=== PATIENT | female | born 1975 | race African-American/Black ===

== ENCOUNTER 2021-11-13 14:19 | Inpatient (IN) | payer MEDICARE, MEDICAID ==
[~2021-11-13] VITALS: Ht 177.8 cm; Wt 130.5 kg
[2021-11-13] VITALS (49 sets, daily range): BP systolic 72–209; BP diastolic 53–119
--- NOTE | ~2021-11-13 | EEG ---
[place] [address] EEG STUDY REPORT Name: SOPHIE STEPHENS Room: [address] IN .R.#: [id number] Admission: 11/13/21 Attend Phys: Margaret Martinez Discharge: Date of : 75 Report #: [id number] THIS REPORT FOR: cc: Beth Anne APRN, Stephanie APRN Khosla,Oj Doran MD ~ DATE OF SERVICE: 11/16/2021 This patient is being evaluated for hypoxic encephalopathy. This patient's background activity goes up to about 6 Hz and 30 microvolt, well defined cortical activity is present. There appeared to be frontally predominant triphasic waves. No active epileptiform activity appeared to be present. IMPRESSION: This patient's EEG is abnormal because it is slow and triphasic waves are present that can occur with encephalopathy. However, well defined cortical activity is present, although it is slow. Thank you very much for this referral. By: 1225 1240Oj Gooden MD /nt
--- NOTE | ~2021-11-13 | EEG ---
[address] [address] EEG STUDY REPORT Name: SOPHIE STEPHENS Room: [address] IN .R.#: [id number] Admission: 11/13/21 Attend Phys: Margaret Martinez Discharge: Date of : 75 Report #: [id number] THIS REPORT FOR: cc: Beth Anne APRN, Stephanie APRN Khosla,Oj Doran MD ~ DATE OF SERVICE: 11/14/2021 This patient's EEG was done to evaluate the patient for hypoxic encephalopathy. EEG was done by placing electrode by standard 10-20 system of electrode placement. Both referential and sequential montages were used for recording. The patient's EEG demonstrate classical burst suppression pattern. IMPRESSION: This patient's EEG is abnormal and demonstrates a classical burst suppression pattern throughout the EEG. Clinical correlation is recommended. We will recommend repeat EEG after the patient is off sedation and off hypothermia protocol to further evaluate this patient. Thank you very much for this referral and if you have any questions, please feel free to contact me. By: 1545 1631Pkarely Gooden MD /nt
--- NOTE | ~2021-11-13 | CON ---
[address] [address] CONSULTATION Name: SOPHIE STEPHENS Room: [address] IN M.R.#: [id number] Admission: 11/13/21 Attend Phys: Margaret Martinez Discharge: Date of : 75 Report #: [id number] THIS REPORT FOR: cc: Beth Anne APRN,Beth Gooden,Oj Doran MD ~ DATE OF CONSULTATION: 11/14/2021 HISTORY OF PRESENT ILLNESS: A 46-year-old female patient who was evaluated by me for hypoxic encephalopathy. This patient has numerous medical issues and she is being followed by multiple physicians. She was found unresponsive at home but then coded in ambulance as I understand from the nurses and required epinephrine and subsequently she was intubated and she was having some seizure-like activity, but then she was given paralytic agents. It is difficult to tell if she is having seizure activity now or not clinically. REVIEW OF SYSTEMS: Positive for dialysis. She is on dialysis for some time. Family has left, so I cannot reach them and so therefore, history is pretty limited in this patient. Record indicated that she has a history of obesity, hypertension, diabetes, being on dialysis and had a cardiac arrest. This was a relevant 14-point review of system, which is available. PAST MEDICAL HISTORY: Positive that she is on dialysis. FAMILY HISTORY: Positive for diabetes and hypertension as per records. SOCIAL HISTORY: One of the record indicated she does not smoke or drink alcohol. PHYSICAL EXAMINATION: Pretty limited. She is completely unresponsive, but she is also on sedation and paralytic agent. She is not having any active seizure, but that will be difficult to tell because she is on paralytic agents. She has no reflexes. She is blind in the right eye. Left pupil is nonreactive. Although, it is midpoint. This is all the examination which is possible in this patient. She is intubated. Temperature is 91.9. She is on hypothermia protocol. Pulse is 60 and blood pressure is 148/85. She did not have a CT scan in the Emergency Room. EEG showed classical burst suppression pattern. IMPRESSION AND PLAN: Hypoxic encephalopathy with EEG showing classical burst suppression pattern. Burst suppression pattern generally is considered a bad prognostic sign after hypoxic encephalopathy. However, that determination cannot be made presently because the patient is on hypothermia protocol as well as on sedation. The patient need another serial [place] [address] CONSULTATION Name: SOPHIE STEPHENS Room: [address] IN [facility]#: [id number] Admission: 11/13/21 Attend Phys: Margaret Martinez Discharge: Date of : 75 Report #: [id number] determine the extent of hypoxic damage to the brain. She was already having seizure activity and the patient with burst suppression pattern tend to have seizure. We will go ahead and give her 500 mg b.i.d. of Keppra and see if that can control the seizures and then attempt can be made to discontinue or at least taper off the paralyzing agent. That may not work because the patient's seizures with a burst suppression pattern can be intractable seizures and sometimes difficult. By: 1603 1851Pkarely Gooden MD /nt
[2021-11-13 15:13] LABS: HEMATOCRIT 34.6 % (37.0-47.0); HEMOGLOBIN 10.7 gm/dL (12.0-15.0); MCH 28.7 pg (26.0-34.0); MCV 92.5 fL (80.0-100.0); MPV 7.7 fl. (7.2-11.1); NUCLEATED RBCS 0 /100WBC; PLATELET COUNT* 324 thou/uL (150-400); RBC 3.74 mil/uL (4.20-5.00); WBC 14.9 thou/uL (4.0-11.0)
[2021-11-13 15:24] LABS: CALCIUM 8.5 mg/dL (8.5-10.1); CREATININE 9.2 mg/dL (0.6-1.3); POTASSIUM 4.3 mmol/L (3.5-5.1)
[2021-11-13 15:34] LABS: ALBUMIN 3.1 g/dL (3.4-5.0); TOTAL BILIRUBIN 0.6 mg/dL (<0.1-1.0); TOTAL PROTEIN 7.5 g/dL (6.4-8.2)
[2021-11-13 15:52] LABS: ABSOLUTE LYMPHOCYTES 5.8 thou/uL (0.8-5.3); ABSOLUTE MONOCYTES 0.3 thou/uL (0.0-1.2); ABSOLUTE NEUTROPHILS 8.8 thou/uL (1.6-8.1); PLATELET ESTIMATE ADEQUATE
[2021-11-13 21:30] LABS: ABSOLUTE LYMPHOCYTES 0.8 thou/uL (0.8-5.3); ABSOLUTE MONOCYTES 0.6 thou/uL (0.0-1.2); ABSOLUTE NEUTROPHILS 16.2 thou/uL (1.6-8.1); BASOPHILS 0.1 %; EOSINOPHILS 0.1 %; HEMOGLOBIN 9.6 gm/dL (12.0-15.0); LYMPHOCYTES 4.3 %; MCH 28.4 pg (26.0-34.0); MCV 88.8 fL (80.0-100.0); MONOCYTES 3.5 %; MPV 7.7 fl. (7.2-11.1); NUCLEATED RBCS 0 /100WBC; PLATELET COUNT* 268 thou/uL (150-400); RBC 3.38 mil/uL (4.20-5.00); RDW-CV 18.7 % (10.5-14.5); WBC 17.6 thou/uL (4.0-11.0)
[2021-11-13 21:34] LABS: CALCIUM 7.5 mg/dL (8.5-10.1); CREATININE 9.7 mg/dL (0.6-1.3); POTASSIUM 4.6 mmol/L (3.5-5.1)
[2021-11-13 21:40] LABS: BE -4.4 mmol/L (-2 to +3); PCO2 29.2 mmHg (35.0-45.0); pH 7.431 (7.340-7.450)
[2021-11-13 21:43] LABS: PO2 243.2 mmHg (75.0-100.0)
[2021-11-13 21:54] LABS: APTT 30.7 Seconds (25.0-31.3); INR 1.3
[2021-11-13 21:56] LABS: CALCIUM 7.6 mg/dL (8.5-10.1)
[2021-11-13 22:08] LABS: MAGNESIUM 1.7 mg/dL (1.8-2.4); PHOSPHORUS* 6.7 mg/dL (2.5-4.9)
[2021-11-14] VITALS (115 sets, daily range): BP systolic 82–168; BP diastolic 50–119
[2021-11-14 01:01] LABS: CALCIUM 7.6 mg/dL (8.5-10.1); CREATININE 9.6 mg/dL (0.6-1.3); POTASSIUM 4.4 mmol/L (3.5-5.1)
[2021-11-14 05:28] LABS: ABSOLUTE LYMPHOCYTES 0.9 thou/uL (0.8-5.3); ABSOLUTE MONOCYTES 0.6 thou/uL (0.0-1.2); ABSOLUTE NEUTROPHILS 15.9 thou/uL (1.6-8.1); BASOPHILS 0.1 %; HEMATOCRIT 33.1 % (37.0-47.0); HEMOGLOBIN 10.6 gm/dL (12.0-15.0); LYMPHOCYTES 4.9 %; MCH 28.3 pg (26.0-34.0); MCV 88.4 fL (80.0-100.0); MONOCYTES 3.4 %; NUCLEATED RBCS 0 /100WBC; PLATELET COUNT* 262 thou/uL (150-400); POLYS 91.6 %; RBC 3.74 mil/uL (4.20-5.00); RDW-CV 18.9 % (10.5-14.5); WBC 17.4 thou/uL (4.0-11.0)
[2021-11-14 05:39] LABS: ANION GAP 16 mmol/L (7-16); BUN 39 mg/dL (7-18); CALCIUM 7.8 mg/dL (8.5-10.1); CHLORIDE 96 mmol/L (98-107); CO2 22 mmol/L (21-32); CREATININE 9.7 mg/dL (0.6-1.3); GLUCOSE 196 mg/dL (70-99); NT-PRO BRAIN NAT PEPTIDE > 35000 pg/mL (<300); POTASSIUM 4.9 mmol/L (3.5-5.1); SODIUM 134 mmol/L (136-145)
[2021-11-14 10:21] LABS: PCO2 26.7 mmHg (35.0-45.0); PO2 111.9 mmHg (75.0-100.0); pH 7.496 (7.340-7.450)
[2021-11-14 13:46] LABS: INFLUENZA A ANTIGEN Negative (Negative); INFLUENZA B ANTIGEN Negative (Negative)
--- NOTE | 2021-11-14 14:43 | EKG ---
[place] [address] ELECTROCARDIOGRAM REPORT Name: SOPHIE STEPHENS Room: [address] ADM IN ..#: [id number] Admission: 11/13/21 Attend Phys: Ivan Jacobson Discharge: Date of : 75 Date of Service: 11/13/21 1547 Report #: [id number] THIS REPORT FOR: //name// [facility] ED Test Date: 2021-11-13 Test Time: 15:47:09 Pat Name: SOPHIE STEPHENS Department: Room: [facility] Gender: F [employer] Work[employer] Supervisor: GENEVIEVE : 1975 Requested By: Julian Chew Order Number: [id number] MD: Mikhail Bush Measurements Intervals Union Rate: 95 P: 71 NM: 159 QRS: 33 QRSD: 91 T: 49 QT: 379 QTc: 477 Interpretive Statements Sinus rhythm No previous ECG available for comparison Electronically Signed On 11-14-2021 14:43:25 CUT ORDER HAND by Mikhail Bush [email or web address] <ELECTRONICALLY SIGNED> By: Mikhail Bush MD, [facility] 11/14/21 1443 1547 1547 Mikhail Bush MD, [facility] /EPI
--- NOTE | 2021-11-14 16:16 | 2DMMODE ---
[place] [address] 2 D/M-MODE ECHOCARDIOGRAM Name: SOPHIE STEPHENS Cecily Room: [address] ADM IN R#: [id number] Admission: 11/13/21 Attend Phys: Ivan Jacobson Discharge: Date of : 75 Date of Service: 11/14/21 1615 Report #: [id number] THIS REPORT FOR: cc: Beth Anne APRN,Beth Bush,Mikhail Riggs MD [facility] ~ APPROVED REPORT Study performed: 11/14/2021 14:58:50 EXAM: Comprehensive 2D, Doppler, and color-flow Echocardiogram Patient Location: In-Patient Room #: 004 Status: routine BSA: 2.43 HR: 68 bpm BP: 148/85 mmHg Rhythm: NSR Other Information Study Quality: Adequate Indications cardiac arrest 2D Dimensions IVSd: 18.00 (7-11mm) LVOT Diam: 19.33 (18-24mm) LVDd: 31.60 mm PWd: 12.73 (7-11mm) Ascending Ao: 31.75 (22-36mm) LVDs: 16.76 (25-40mm) Aortic Root: 30.79 mm Volumes Left Atrial Volume (Systole) LA ESV Index: 17.30 mL/m2 Aortic Valve AoV Peak Roberto.: 1.12 m/s AO Peak Gr.: 4.98 mmHg LVOT Max P.50 mmHg AO Mean Gr.: 2.62 mmHg LVOT Mean P.75 mmHg LVOT Max V: 0.94 m/s AO V2 VTI: 26.06 cm LVOT Mean V: 0.61 m/s BRINA (VTI): 3.38 cm2 LVOT V1 VTI: 30.00 [place] [address] 2 D/M-MODE ECHOCARDIOGRAM Name: SOPHIE STEPHENS Room: [address] IN ..#: [id number] Admission: 11/13/21 Attend Phys: Ivan Jacobson Discharge: Date of : 75 Date of Service: 11/14/21 1615 Report #: [id number] Mitral Valve E/A Ratio: 1.03 MV Decel. Time: 215.48 ms MV E Max Roberto.: 0.91 m/s MV PHT: 62.49 ms MVA (PHT): 3.52 cm2 TDI E/Lateral E': 13.00 E/Medial E': 11.38 Medial E' Roberto.: 0.08 m/s Lateral E' Roberto.: 0.07 m/s Pulmonary Valve PV Peak Roberto.: 0.82 m/s PV Peak Gr.: 2.68 mmHg Left Ventricle The left ventricle is normal size. There is normal LV segmental wall motion. Mild concentric left ventricular hypertrophy. Left ventricular systolic function is normal. The left ventricular ejection fraction is within the normal range. LVEF is 65-70%. The left ventricular diastolic function is normal. Right Ventricle The right ventricle is normal size. The right ventricular systolic function is normal. Atria The left atrium size is normal. The right atrium size is normal. Aortic Valve The aortic valve is normal in structure. No aortic regurgitation is present. There is no aortic valvular stenosis. Mitral Valve The mitral valve is normal in structure. Trace mitral regurgitation. No evidence of mitral valve stenosis. Tricuspid Valve The tricuspid valve is normal in structure. Unable to assess PA pressure. Trace tricuspid regurgitation. Pulmonic Valve The pulmonary valve is normal in structure. [place] [address] 2 D/M-MODE ECHOCARDIOGRAM Name: SOPHIE STEPHENS Room: [address] IN [facility]#: [id number] Admission: 11/13/21 Attend Phys: Ivan Jacobson Discharge: Date of : 75 Date of Service: 11/14/21 1615 Report #: [id number] Great Vessels The aortic root is normal in size. IVC is not well visualized. Pericardium There is no pericardial effusion. <Conclusion> Mild concentric left ventricular hypertrophy. LVEF is 65-70%. Trace mitral regurgitation. <ELECTRONICALLY SIGNED> By: Mikhail Bush MD, FACC 11/14/211614 14 14 Mikhail Bush MD, FACC /INF
[2021-11-14 18:05] LABS: APTT 34.9 Seconds (25.0-31.3); INR 1.4; PROTIME 14.6 Seconds (9.20-11.50)
[2021-11-14 18:06] LABS: ALBUMIN 2.3 g/dL (3.4-5.0); ALKALINE PHOSPHATASE 62 U/L (46-116); ANION GAP 15 mmol/L (7-16); BUN 40 mg/dL (7-18); CHLORIDE 98 mmol/L (98-107); CO2 23 mmol/L (21-32); CREATININE 9.5 mg/dL (0.6-1.3); GLUCOSE 201 mg/dL (70-99); MAGNESIUM 1.8 mg/dL (1.8-2.4); NT-PRO BRAIN NAT PEPTIDE > 35000 pg/mL (<300); PHOSPHORUS* 5.9 mg/dL (2.5-4.9); POTASSIUM 4.6 mmol/L (3.5-5.1); SGOT 109 U/L (15-37); SGPT 276 U/L (30-65); SODIUM 136 mmol/L (136-145); TOTAL BILIRUBIN 0.6 mg/dL (<0.1-1.0); TOTAL PROTEIN 6.3 g/dL (6.4-8.2)
[2021-11-14 19:02] LABS: ABSOLUTE LYMPHOCYTES 0.5 thou/uL (0.8-5.3); ABSOLUTE MONOCYTES 0.1 thou/uL (0.0-1.2); ABSOLUTE NEUTROPHILS 14.9 thou/uL (1.6-8.1); BASOPHILS 0.1 %; EOSINOPHILS 0.1 %; HEMATOCRIT 31.9 % (37.0-47.0); HEMOGLOBIN 10.4 gm/dL (12.0-15.0); LYMPHOCYTES 3.4 %; MCH 28.4 pg (26.0-34.0); MCHC 32.7 g/dL (28.0-37.0); MCV 86.8 fL (80.0-100.0); MONOCYTES 0.9 %; MPV 7.5 fl. (7.2-11.1); NUCLEATED RBCS 0 /100WBC; PLATELET COUNT* 221 thou/uL (150-400); POLYS 95.5 %; RBC 3.67 mil/uL (4.20-5.00); RDW-CV 18.6 % (10.5-14.5); WBC 15.7 thou/uL (4.0-11.0)
[2021-11-15] VITALS (67 sets, daily range): BP systolic 77–160; BP diastolic 42–101
[2021-11-15 03:46] LABS: ABSOLUTE LYMPHOCYTES 0.6 thou/uL (0.8-5.3); ABSOLUTE MONOCYTES 0.1 thou/uL (0.0-1.2); ABSOLUTE NEUTROPHILS 15.5 thou/uL (1.6-8.1); BASOPHILS 0.3 %; HEMATOCRIT 32.6 % (37.0-47.0); HEMOGLOBIN 10.4 gm/dL (12.0-15.0); LYMPHOCYTES 3.6 %; MCH 27.9 pg (26.0-34.0); MCHC 31.8 g/dL (28.0-37.0); MCV 87.7 fL (80.0-100.0); MONOCYTES 0.7 %; MPV 7.8 fl. (7.2-11.1); NUCLEATED RBCS 0 /100WBC; PLATELET COUNT* 227 thou/uL (150-400); POLYS 95.4 %; RBC 3.72 mil/uL (4.20-5.00); RDW-CV 18.4 % (10.5-14.5); WBC 16.2 thou/uL (4.0-11.0)
[2021-11-15 03:57] LABS: PHOSPHORUS* 6.3 mg/dL (2.5-4.9)
[2021-11-15 04:02] LABS: APTT 36.5 Seconds (25.0-31.3); INR 1.4; PROTIME 13.9 Seconds (9.20-11.50)
[2021-11-15 04:09] LABS: ALBUMIN 2.4 g/dL (3.4-5.0); CALCIUM 7.2 mg/dL (8.5-10.1); POTASSIUM 4.5 mmol/L (3.5-5.1); TOTAL BILIRUBIN 0.6 mg/dL (<0.1-1.0); TOTAL PROTEIN 6.5 g/dL (6.4-8.2)
[2021-11-15 08:20] LABS: BE -4.6 mmol/L (-2 to +3); PCO2 21.4 mmHg (35.0-45.0); pH 7.515 (7.340-7.450)
[2021-11-15 08:22] LABS: PO2 167.8 mmHg (75.0-100.0)
[2021-11-16] VITALS (39 sets, daily range): BP systolic 124–189; BP diastolic 64–116
[2021-11-16 04:01] LABS: ABSOLUTE LYMPHOCYTES 0.8 thou/uL (0.8-5.3); ABSOLUTE MONOCYTES 0.4 thou/uL (0.0-1.2); ABSOLUTE NEUTROPHILS 14.6 thou/uL (1.6-8.1); HEMATOCRIT 31.8 % (37.0-47.0); HEMOGLOBIN 10.2 gm/dL (12.0-15.0); LYMPHOCYTES 5.3 %; MCH 28.4 pg (26.0-34.0); MCHC 32.2 g/dL (28.0-37.0); MCV 88.1 fL (80.0-100.0); MONOCYTES 2.7 %; NUCLEATED RBCS 0 /100WBC; PLATELET COUNT* 219 thou/uL (150-400); RBC 3.61 mil/uL (4.20-5.00); RDW-CV 19.1 % (10.5-14.5); WBC 15.9 thou/uL (4.0-11.0)
[2021-11-16 04:22] LABS: ALBUMIN 2.5 g/dL (3.4-5.0); CALCIUM 7.7 mg/dL (8.5-10.1); MAGNESIUM 2.1 mg/dL (1.8-2.4); POTASSIUM 4.9 mmol/L (3.5-5.1); TOTAL BILIRUBIN 0.5 mg/dL (<0.1-1.0)
[2021-11-16 04:35] LABS: CREATININE 6.6 mg/dL (0.6-1.3)
[2021-11-16 08:02] LABS: BE -1.2 mmol/L (-2 to +3); PCO2 36.2 mmHg (35.0-45.0); PO2 116.5 mmHg (75.0-100.0)
--- NOTE | 2021-11-16 09:47 | CON ---
[address] [address] CONSULTATION Name: SOPHIE STEPHENS Room: [address] IN M.R.#: [id number] Admission: 11/13/21 Attend Phys: Margaret Martinez Discharge: Date of : 75 Report #: [id number] THIS REPORT FOR: cc: Beth Anne APRN,Beth Gonzalez,Aidan Moreno MD ~ DATE OF CONSULTATION: 11/14/2021 REQUESTING PHYSICIAN: Ivan Jacobson DO REASON FOR CONSULTATION: End-stage renal disease. HISTORY OF PRESENT ILLNESS: The patient is a 46-year-old female with medical history significant for end-stage renal disease, dialysis on Saturday, Saturday, Saturday schedule; obesity, history of hypertension, and diabetes. She had dialysis yesterday and went home and then was found unresponsive, was in cardiac arrest. She was resuscitated and now she is in intensive care unit, intubated. PAST MEDICAL HISTORY: As mentioned earlier. SOCIAL HISTORY: No tobacco or alcohol abuse. FAMILY HISTORY: Positive for diabetes and hypertension. MEDICATIONS: Reviewed. PHYSICAL EXAMINATION: GENERAL: She is in intensive care unit, intubated, unresponsive. NECK: Fatty. LUNGS: Decreased air movements. CARDIOVASCULAR: Regular rate. ABDOMEN: Obese. EXTREMITIES: Lower extremities, trace edema. She has left upper arm AV fistula. LABORATORY DATA: Revealed a potassium of 4.9. ABG today revealed pH of 7.49, pCO2 26.7, pO2 of 111.9. ASSESSMENT: 1. End-stage renal disease on Saturday, Saturday, Saturday dialysis. 2. Status post cardiac arrest. 3. Obesity. 4. [place] [address] CONSULTATION Name: KATSOPHIE Room: [address] IN .R.#: [id number] Admission: 11/13/21 Attend Phys: Margaret Martinez Discharge: Date of : 75 Report #: [id number] PLAN: Plan to dialyze her tomorrow. We will assess the extent of her anoxic encephalopathy. <ELECTRONICALLY SIGNED> By: Aidan Gonzalez MD 11/16/21 0947 0939 0947Aidan Gonzalez MD /nt
--- NOTE | 2021-11-16 16:51 | CON ---
[address] [address] CONSULTATION Name: SOPHIE STEPHENS Room: [address] IN M.R.#: [id number] Admission: 11/13/21 Attend Phys: Margaret Martinez Discharge: Date of : 75 Report #: [id number] THIS REPORT FOR: cc: Beth Anne APRN, Stephanie APRN Pervez, Adeel MD ~ DATE OF CONSULTATION: 11/14/2021 Consult has been requested by Dr. Jacobson. INDICATION FOR CONSULTATION: Acute hypoxemic respiratory failure. HISTORY OF PRESENT ILLNESS: A 46-year-old female, past medical history includes history of end-stage renal disease as well as diabetes, unknown as to whether she is vaccinated for COVID. The patient had hemodialysis yesterday, subsequently was found unresponsive, was brought to the Emergency Room and went into a PEA cardiac arrest in the Emergency Room, received CPR, received epinephrine, eventually had return of spontaneous circulation, was on an epinephrine drip. At this time, the patient is on the ventilator. She is on 35% FiO2 with 5 of PEEP. She is ventilating and oxygenating adequately. She is sedated and paralyzed on Versed and fentanyl drip as well as vecuronium. She is reported to have had jerky movements suspicious of seizures initially. She was also reported to be shivering initially. As she is paralyzed with vecuronium now, I am not able to evaluate this adequately at this time. She is now off pressors and she is hemodynamically stable. Her chest x-ray shows extensive bilateral infiltrates consistent with pulmonary edema, extensive pneumonia can also give this picture. PAST MEDICAL HISTORY: Diabetes and end-stage renal disease. SOCIAL HISTORY: Unknown. FAMILY HISTORY: Positive for diabetes and hypertension. CURRENT MEDICATIONS: List in [facility] reviewed. HOME MEDICATIONS: Unknown. ALLERGIES: No known drug allergies. PHYSICAL EXAMINATION: GENERAL: She is sedated and paralyzed as described above. VITAL SIGNS: [place] [address] CONSULTATION Name: KATSOPHIE Room: [address] IN [facility]#: [id number] Admission: 11/13/21 Attend Phys: Margaret Martinez Discharge: Date of : 75 Report #: [id number] HEENT: Head is normocephalic and atraumatic. There is an endotracheal tube in good position. NECK: Does not show raised JVP, asymmetry, mass or lymph nodes. CHEST: Symmetrical expansion on inspection and palpation. On auscultation, there are significant rales bilaterally. There are some end-expiratory wheezes heard as well. HEART: Regular. There is no murmur. ABDOMEN: Soft and nontender. EXTREMITIES: Lower extremities, trace edema, no calf tenderness. SKIN: Dry and intact. NEUROLOGIC: Completely unresponsive as sedated and paralyzed. LABORATORY DATA: In [facility] reviewed. IMAGING STUDIES: In [facility] reviewed. ASSESSMENT AND PLAN: 1. Acute hypoxemic respiratory failure secondary to cardiac arrest, the etiology of the patient's cardiac arrest is not fully defined at this time. Apparently, she had a cardiac arrest post-dialysis, which makes it less likely that this is secondary to pulmonary edema despite the fact that chest x-ray gives such an appearance. For now, she is on code ice. As it is not fully apparent to me as to whether the patient is refusing. She is paralyzed, I increased Versed. We will continue with fentanyl. Once she is off vecuronium, when we start to warm her, we would reassess. 2. Acute pulmonary edema/elevated troponin. I would obtain an echocardiogram, down the line may benefit from a Cardiology opinion as well. We would defer decision regarding dialysis to the Nephrology service. At this time, we are ventilating and oxygenating adequately. 3. Pulmonary infiltrates. More cultures and serologies including COVID-19 PCR are ordered. Pending results, I will give her dexamethasone. I would also broaden antibiotics. 4. Elevated D-dimer/evaluation for thromboembolism. It will be interesting to see what her right heart pressure is. I would also like to do venous Dopplers. 5. End-stage renal disease. She is on hemodialysis. 6. Diabetes. She is on an insulin sliding scale. 7. Gastrointestinal prophylaxis, Protonix. 8. Possible seizures/shivering before vecuronium started. It is not clear to me as to whether if the patient actually had seizures or as to whether she is still seizing. Therefore, I consulted Neurology and we will request them to do an EEG to evaluate whether she is having active seizures. Pending such evaluation, I increased Versed. [address] [address] CONSULTATION Name: SOPHIE STEPHENS Room: [address] IN M.R.#: [id number] Admission: 11/13/21 Attend Phys: Margaret Martinez Discharge: Date of : 75 Report #: [id number] The patient is critically ill at this time. Total time spent providing critical care to this patient today exceeds 41 minutes. <ELECTRONICALLY SIGNED> By: Nasir Stevenson MD 11/16/21 1651 1143 1419Adonna Stevenson MD /nt
[2021-11-17] VITALS (45 sets, daily range): BP systolic 95–173; BP diastolic 47–81
[2021-11-17 04:32] LABS: HEMOGLOBIN 9.4 gm/dL (12.0-15.0)
[2021-11-17 04:34] LABS: HEMATOCRIT 29.4 % (37.0-47.0); MCH 28.5 pg (26.0-34.0); MCHC 31.9 g/dL (28.0-37.0); MCV 89.4 fL (80.0-100.0); MPV 8.6 fl. (7.2-11.1); NUCLEATED RBCS 0 /100WBC; PLATELET COUNT* 222 thou/uL (150-400); RBC 3.29 mil/uL (4.20-5.00); RDW-CV 19.5 % (10.5-14.5); WBC 16.5 thou/uL (4.0-11.0)
[2021-11-17 05:20] LABS: CALCIUM 7.1 mg/dL (8.5-10.1); MAGNESIUM 2.2 mg/dL (1.8-2.4); POTASSIUM 4.1 mmol/L (3.5-5.1)
[2021-11-17 05:45] LABS: CREATININE 8.3 mg/dL (0.6-1.3)
[2021-11-17 07:27] LABS: ABSOLUTE LYMPHOCYTES 2.3 thou/uL (0.8-5.3); ABSOLUTE MONOCYTES 0.7 thou/uL (0.0-1.2); ABSOLUTE NEUTROPHILS 13.5 thou/uL (1.6-8.1); METAMYELOCYTES 1 %
[2021-11-17 07:28] LABS: ANISOCYTOSIS 1+; HYPOCHROMASIA 2+; MACROCYTES Occasional; MICROCYTES Occasional; PLATELET ESTIMATE ADEQUATE
--- NOTE | 2021-11-17 08:20 | CON ---
[address] [address] CONSULTATION Name: SOPHIE STEPHENS Room: [address] IN M.R.#: [id number] Admission: 11/13/21 Attend Phys: Margaret Martinez Discharge: Date of : 75 Report #: [id number] THIS REPORT FOR: cc: Beth Anne APRN,Beth Bush,Mikhail Riggs MD [facility] ~ DATE OF CONSULTATION: 11/15/2021 CARDIOLOGY CONSULTATION HISTORY OF PRESENT ILLNESS: The patient is a 46-year-old black female who was asked to see in the hospital today after she apparently had a respiratory arrest. The history is obtained from the chart. There are no family members available. The patient has never been here to [place] before. She was actually admitted 2 days ago. She was brought to [place] by ambulance in the afternoon. The patient apparently was undergoing dialysis and became unresponsive. She was brought here to [place] and intubated. Cardiology consultation was requested. According to the patient's chart, she has end-stage renal disease and undergoes hemodialysis Saturday, Saturday and Saturday. PAST MEDICAL HISTORY: Significant for hypertension, diabetes. MEDICATIONS: Prior to admission included the following list at dialysis. There is currently no list of medications in. PHYSICAL EXAMINATION: GENERAL: Reveals an obese black female lying in bed. She is on a ventilator. She is unresponsive to voice. VITAL SIGNS: She had a blood pressure 120/80, pulse 70. She is afebrile. HEENT: She was anicteric. Conjunctivae pink. Mucous membranes moist. NECK: Neck veins difficult to assess due to obesity. CHEST: Clear to auscultation. Normal lung sounds. CARDIAC: Regular rate and rhythm, no significant murmur. ABDOMEN: Obese. EXTREMITIES: Had trace edema. SKIN: Cool and dry. NEUROLOGIC: She is unresponsive to painful stimuli. LABORATORY DATA: Her ECG on admission showed a sinus rhythm, no ST or T-wave changes. She actually had an echocardiogram after she was admitted that showed ejection fraction of 65%, left ventricular hypertrophy. The patient had a portable chest x-ray on admission that showed cardiomegaly, bilateral infiltrates. Her lab work, creatinine was 10.0, potassium 4.5. Her glucose was 175. High sensitivity troponin was 289. BNP 35,000. Hematocrit 32.6. COVID antigen [place] [address] CONSULTATION Name: SOPHIE STEPHENS Room: [address]#: [id number] Admission: 11/13/21 Attend Phys: Margaret Martinez Discharge: Date of : 75 Report #: [id number] IMPRESSION AND RECOMMENDATIONS: 1. Respiratory distress, failure. The patient currently ventilated. 2. Coma following cardiac arrest. 3. Suspect pulseless electrical activity. The patient apparently was not cardioverted. 4. End-stage renal disease. The patient on hemodialysis. 5. Diabetes. 6. Hypertension. <ELECTRONICALLY SIGNED> By: Mikhail Bush MD, FACC 11/17/21 0820 1415 1902Drod Bush MD, FAC /nt
[2021-11-17 14:08] LABS: MYCOPLASMA PNEUMONIA IgG 560 U/mL (0-99); MYCOPLASMA PNEUMONIA IgM <770 U/mL (0-769)
[2021-11-18] VITALS (44 sets, daily range): BP systolic 106–223; BP diastolic 52–131
[2021-11-18 04:05] LABS: ALBUMIN 2.7 g/dL (3.4-5.0); CALCIUM 8.1 mg/dL (8.5-10.1); MAGNESIUM 1.9 mg/dL (1.8-2.4); POTASSIUM 3.9 mmol/L (3.5-5.1); TOTAL BILIRUBIN 0.4 mg/dL (<0.1-1.0); TOTAL PROTEIN 7.1 g/dL (6.4-8.2)
[2021-11-18 04:10] LABS: CREATININE 5.5 mg/dL (0.6-1.3)
[2021-11-18 07:25] LABS: ABSOLUTE BASOPHILS 0.1 thou/uL (0.0-0.2); ABSOLUTE LYMPHOCYTES 2.2 thou/uL (0.8-5.3); ABSOLUTE MONOCYTES 1.4 thou/uL (0.0-1.2); ABSOLUTE NEUTROPHILS 19.1 thou/uL (1.6-8.1); BASOPHILS 0.5 %; HEMATOCRIT 30.6 % (37.0-47.0); HEMOGLOBIN 9.7 gm/dL (12.0-15.0); LYMPHOCYTES 9.7 %; MCH 28.1 pg (26.0-34.0); MCHC 31.6 g/dL (28.0-37.0); MPV 8.9 fl. (7.2-11.1); NUCLEATED RBCS 0 /100WBC; PLATELET COUNT* 241 thou/uL (150-400); POLYS 83.8 %; RBC 3.44 mil/uL (4.20-5.00); RDW-CV 18.7 % (10.5-14.5); WBC 22.8 thou/uL (4.0-11.0)
[2021-11-18 12:54] LABS: BE 1.5 mmol/L (-2 to +3); PCO2 37.7 mmHg (35.0-45.0); pH 7.447 (7.340-7.450)
[2021-11-19] VITALS (36 sets, daily range): BP systolic 85–166; BP diastolic 36–92
[2021-11-19 04:47] LABS: ABSOLUTE BASOPHILS 0.1 thou/uL (0.0-0.2); ABSOLUTE LYMPHOCYTES 3.5 thou/uL (0.8-5.3); ABSOLUTE MONOCYTES 1.5 thou/uL (0.0-1.2); ABSOLUTE NEUTROPHILS 14.7 thou/uL (1.6-8.1); BASOPHILS 0.3 %; EOSINOPHILS 0.1 %; HEMATOCRIT 26.4 % (37.0-47.0); HEMOGLOBIN 8.5 gm/dL (12.0-15.0); LYMPHOCYTES 17.7 %; MCH 28.7 pg (26.0-34.0); MCHC 32.1 g/dL (28.0-37.0); MCV 89.4 fL (80.0-100.0); MONOCYTES 7.4 %; MPV 8.2 fl. (7.2-11.1); NUCLEATED RBCS 0 /100WBC; PLATELET COUNT* 217 thou/uL (150-400); POLYS 74.5 %; RBC 2.95 mil/uL (4.20-5.00); RDW-CV 18.6 % (10.5-14.5); WBC 19.7 thou/uL (4.0-11.0)
[2021-11-19 05:04] LABS: PHOSPHORUS* 5.5 mg/dL (2.5-4.9)
[2021-11-19 05:05] LABS: CALCIUM 8.1 mg/dL (8.5-10.1); POTASSIUM 3.7 mmol/L (3.5-5.1)
[2021-11-19 05:09] LABS: ALBUMIN 2.5 g/dL (3.4-5.0); MAGNESIUM 2.3 mg/dL (1.8-2.4); POTASSIUM 3.7 mmol/L (3.5-5.1); TOTAL BILIRUBIN 0.4 mg/dL (<0.1-1.0); TOTAL PROTEIN 6.3 g/dL (6.4-8.2)
[2021-11-19 05:14] LABS: CREATININE 7.1 mg/dL (0.6-1.3)
[2021-11-20] VITALS (62 sets, daily range): BP systolic 95–182; BP diastolic 38–94
[2021-11-20 05:51] LABS: CALCIUM 8.2 mg/dL (8.5-10.1); HEMATOCRIT 26.5 % (37.0-47.0); HEMOGLOBIN 8.4 gm/dL (12.0-15.0); MCH 28.5 pg (26.0-34.0); MCHC 31.8 g/dL (28.0-37.0); MCV 89.5 fL (80.0-100.0); MPV 8.3 fl. (7.2-11.1); NUCLEATED RBCS 0 /100WBC; PLATELET COUNT* 215 thou/uL (150-400); RBC 2.96 mil/uL (4.20-5.00); RDW-CV 19.1 % (10.5-14.5); WBC 19.4 thou/uL (4.0-11.0)
[2021-11-20 05:59] LABS: CREATININE 8.7 mg/dL (0.6-1.3)
[2021-11-20 07:04] LABS: ABSOLUTE EOSINOPHILS 0.4 thou/uL (0.0-0.7); ABSOLUTE LYMPHOCYTES 6.4 thou/uL (0.8-5.3); ABSOLUTE MONOCYTES 1.6 thou/uL (0.0-1.2); ABSOLUTE NEUTROPHILS 11.1 thou/uL (1.6-8.1)
[2021-11-20 07:07] LABS: PLATELET ESTIMATE ADEQUATE
[2021-11-20 07:08] LABS: ANISOCYTOSIS 1+
[2021-11-20 07:09] LABS: POLYCHROMASIA 1+
== END 2021-11-21 | DRG 4 ==
LOC: EDBD 14:19 → M.ERS 14:19 → M.TBA-ER 15:05 → M.ICU 15:05
PROVIDERS: Family Medicine; Internal Medicine; Internal Medicine Critical Care Medicine; Internal Medicine Nephrology; ADMIT Internal Medicine; ATTEND Internal Medicine
PROC: 0BH17EZ Insertion of Endotracheal Airway into Trachea, Via Natural or Artificial Opening (ICD-10-PCS; principal; 2021-11-13)
PROC: 06H033Z Insertion of Infusion Device into Inferior Vena Cava, Percutaneous Approach (ICD-10-PCS; principal; 2021-11-13)
PROC: 0DH68UZ Insertion of Feeding Device into Stomach, Via Natural or Artificial Opening Endoscopic (ICD-10-PCS; principal; 2021-11-13)
PROC: 5A1955Z Respiratory Ventilation, Greater than 96 Consecutive Hours (ICD-10-PCS; principal; 2021-11-13)
PROC: 5A12012 Performance of Cardiac Output, Single, Manual (ICD-10-PCS; principal; 2021-11-13)
PROC: B549ZZA Ultrasonography of Inferior Vena Cava, Guidance (ICD-10-PCS; principal; 2021-11-13)
PROC: 0B110F4 Bypass Trachea to Cutaneous with Tracheostomy Device, Open Approach (ICD-10-PCS; principal; 2021-11-13)
PROC: 5A12012 Performance of Cardiac Output, Single, Manual (ICD-10-PCS; 2021-11-14)
DX: A41.9 Sepsis, unspecified organism (principal); I46.9 Cardiac arrest, cause unspecified; N18.6 End stage renal disease; J15.6 Pneumonia due to other Gram-negative bacteria; J96.01 Acute respiratory failure with hypoxia; J69.0 Pneumonitis due to inhalation of food and vomit; G93.1 Anoxic brain damage, not elsewhere classified; E87.3 Alkalosis; J98.11 Atelectasis; K90.49 Malabsorption due to intolerance, not elsewhere classified; Z68.41 Body mass index [BMI] 40.0-44.9, adult; I13.2 Hypertensive heart and chronic kidney disease with heart failure and with stage 5 chronic kidney disease, or end stage renal disease; I50.30 Unspecified diastolic (congestive) heart failure; D64.9 Anemia, unspecified; G40.909 Epilepsy, unspecified, not intractable, without status epilepticus; E11.22 Type 2 diabetes mellitus with diabetic chronic kidney disease; Z66 Do not resuscitate; Z20.822 Contact with and (suspected) exposure to COVID-19; E66.9 Obesity, unspecified; Z83.3 Family history of diabetes mellitus; Z82.49 Family history of ischemic heart disease and other diseases of the circulatory system; Z51.5 Encounter for palliative care